=== PATIENT | female | born 1960 | race Caucasian/White ===

== ENCOUNTER → 2019-07-25 08:48 | Outpatient (BNVA) | payer BC, SELFPAY | PROVIDERS: Family Provider Nurse Practitioner Family; PCP Nurse Practitioner Family; Visit Provider Anesthesiology | DX: M54.5 Low back pain (principal); M79.7 Fibromyalgia; M50.30 Other cervical disc degeneration, unspecified cervical region; M47.812 Spondylosis without myelopathy or radiculopathy, cervical region; G43.709 Chronic migraine without aura, not intractable, without status migrainosus; R53.82 Chronic fatigue, unspecified; Z79.891 Long term (current) use of opiate analgesic | CPT/HCPCS: 99214 ==

== ENCOUNTER → 2019-08-07 09:45 | Outpatient (BNVA) | payer BC, SELFPAY | PROVIDERS: Family Provider Nurse Practitioner Family; PCP Nurse Practitioner Family; Visit Provider Nurse Practitioner Family | DX: I10 Essential (primary) hypertension (principal) | CPT/HCPCS: 80053; 80061; 85025 ==

== ENCOUNTER → 2019-09-26 08:28 | Outpatient (BNVA) | payer BC, SELFPAY | PROVIDERS: Family Provider Nurse Practitioner Family; Visit Provider Anesthesiology | DX: M47.812 Spondylosis without myelopathy or radiculopathy, cervical region (principal); M50.30 Other cervical disc degeneration, unspecified cervical region; M79.7 Fibromyalgia; Z79.891 Long term (current) use of opiate analgesic | CPT/HCPCS: 99214 ==

== ENCOUNTER → 2020-01-15 08:05 | Outpatient (BNVA) | payer BC, SELFPAY | PROVIDERS: Family Provider Nurse Practitioner Family; Visit Provider Anesthesiology | DX: M47.812 Spondylosis without myelopathy or radiculopathy, cervical region (principal); M50.30 Other cervical disc degeneration, unspecified cervical region; M79.7 Fibromyalgia; Z79.891 Long term (current) use of opiate analgesic | CPT/HCPCS: 99214 ==

== ENCOUNTER → 2020-03-14 07:55 | Outpatient (BNVA) | payer BC, SELFPAY | PROVIDERS: Family Provider Nurse Practitioner Family; Visit Provider Anesthesiology | DX: M50.30 Other cervical disc degeneration, unspecified cervical region (principal); M47.812 Spondylosis without myelopathy or radiculopathy, cervical region; Z79.891 Long term (current) use of opiate analgesic | CPT/HCPCS: 99213; 99214 ==

== ENCOUNTER → 2020-05-22 13:47 | Outpatient (BNVA) | payer BC, SELFPAY | PROVIDERS: Family Provider Nurse Practitioner Family; PCP Family Medicine; Visit Provider Anesthesiology | DX: M54.42 Lumbago with sciatica, left side (principal); M54.41 Lumbago with sciatica, right side; M54.9 Dorsalgia, unspecified; M47.812 Spondylosis without myelopathy or radiculopathy, cervical region; M50.30 Other cervical disc degeneration, unspecified cervical region; M79.7 Fibromyalgia; R53.82 Chronic fatigue, unspecified; Z79.1 Long term (current) use of non-steroidal anti-inflammatories (NSAID); Z79.891 Long term (current) use of opiate analgesic | CPT/HCPCS: 99214 ==

== ENCOUNTER → 2020-07-18 07:51 | Outpatient (BNVA) | payer BC, SELFPAY | PROVIDERS: Family Provider Nurse Practitioner Family; PCP Family Medicine; Visit Provider Anesthesiology | DX: G89.29 Other chronic pain (principal); M54.9 Dorsalgia, unspecified; M47.812 Spondylosis without myelopathy or radiculopathy, cervical region; M50.30 Other cervical disc degeneration, unspecified cervical region; M79.7 Fibromyalgia; Z79.891 Long term (current) use of opiate analgesic | CPT/HCPCS: 99214 ==

== ENCOUNTER → 2020-09-11 07:55 | Outpatient (BNVA) | payer BC, SELFPAY | PROVIDERS: Family Provider Nurse Practitioner Family; PCP Family Medicine; Visit Provider Anesthesiology | DX: G89.29 Other chronic pain (principal); M47.812 Spondylosis without myelopathy or radiculopathy, cervical region; M50.30 Other cervical disc degeneration, unspecified cervical region; M79.7 Fibromyalgia; M54.9 Dorsalgia, unspecified; Z79.891 Long term (current) use of opiate analgesic | CPT/HCPCS: 99214 ==

== ENCOUNTER → 2020-11-13 08:22 | Outpatient (BNVA) | payer BC, SELFPAY | PROVIDERS: Family Provider Nurse Practitioner Family; PCP Nurse Practitioner Family; Visit Provider Anesthesiology | DX: G89.29 Other chronic pain (principal); M54.9 Dorsalgia, unspecified; M47.812 Spondylosis without myelopathy or radiculopathy, cervical region; M50.30 Other cervical disc degeneration, unspecified cervical region; M79.7 Fibromyalgia; Z79.891 Long term (current) use of opiate analgesic | CPT/HCPCS: 99214 ==

== ENCOUNTER → 2021-01-09 08:20 | Outpatient (BNVA) | payer BC, SELFPAY | PROVIDERS: Family Provider Nurse Practitioner Family; PCP Nurse Practitioner Family; Visit Provider Anesthesiology | DX: G89.29 Other chronic pain (principal); M47.812 Spondylosis without myelopathy or radiculopathy, cervical region; M50.30 Other cervical disc degeneration, unspecified cervical region; M54.9 Dorsalgia, unspecified; M79.7 Fibromyalgia; Z79.891 Long term (current) use of opiate analgesic | CPT/HCPCS: 99214 ==

== ENCOUNTER 2021-02-12 07:25 | Emergency (ER) | payer BC, SELFPAY ==
[2021-02-12 07:42] VITALS: BP 134/78; PULSE 71; RESP 16; TEMP 36.8; O2SAT 100; BMI 24.0
--- NOTE | 2021-02-12 08:03 | CT_ITS ---
WS: [id number] CT ABDOMEN AND PELVIS WITH CONTRAST HISTORY: abd pain TECHNIQUE: Imaging performed of the abdomen and pelvis with IV contrast. Single phase imaging of the abdomen. Coronal and sagittal reformats are submitted. All CT scans at [facility] use at least one of these dose optimization techniques: automated exposure control; mA and/or kV adjustment per patient size (includes targeted exams where dose is matched to clinical indication); or iterativ e reconstruction. IV CONTRAST: Omnipaque 300; 95 mL IV. Oral contrast: No DLP: 889.79 mGy.cm COMPARISON: None available. Lower thorax: Lung bases are clear. Heart is normal size. No hiatal hernia. Liver/biliary system: Normal size with no intrahepatic dilatation. Gallbladder: Normal. No gallstones or wall thickening. No pericholecystic fluid. Pancreas: Pancreatic duct is mildly prominent 3.2 mm. No stone or obstruction is evident. No mass. Spleen: Normal size spleen. No mass or infarct. Adrenal glands: Normal. Right kidney: Cortical cyst measures 3 mm. There is additional fatty attenuation lesion maximum diame ter of 12 mm in the mid anterior cortex consistent with an angiomyolipoma. No obstruction. Left kidney: Cortical hypodensities. No solid mass or obstruction. Aorta: Normal. Lymphadenopathy: None. Free fluid: None. GI tract: Mild wall thickening of the antrum but no obstruction. The appendix is normal. There is mil d diffuse fecal retention and constipation. No GI tract obstruction. Abdominal wall: Unremarkable abdominal wall. No hernia. Pelvis: No free fluid or adenopathy within the pelvis. Bones: Mild thoracolumbar scoliosis. CT/CT abdomen pelvis w con* [id number] IMPRESSION: 1. No appendicitis. 2. Diffuse constipation. 3. Mild thickening of the stomach antrum. Consider gastritis. 4. Very mildly prominent pancreatic duct with no mass or stone identified. 5. RIGHT renal angiomyolipoma.
--- NOTE | 2021-02-12 08:03 | US_ITS ---
WS: [id number] RIGHT UPPER QUADRANT ULTRASOUND HISTORY: Abdominal pain. COMPARISON: 03/07/2009 Liver: 12.7 cm in length. Normal size liver. No bile duct dilatation or mass. Gallbladder: Normally distended gallbladder. No stones or wall thickening. CBD: 0.3 cm Pancreas: Pancreas is normal size. The pancreatic duct is dilated measuring up to 3 mm. No mass ident ified or stone. Right kidney: 10.0 cm in length. Normal size and echogenicity. No hydronephrosis or mass. Aorta and IVC: Unremarkable abdominal aorta and IVC. No ascites. US/US gall bladder [id number] IMPRESSION: 1. Negative gallbladder. 2. Minimally prominent pancreatic duct to 3 mm. Suggest short-term CT follow-u p of the pancreas with IV and oral contrast to evaluate for pancreatic duct les ion and etiology of the duct dilatation. Arterial and portal venous phases shou ld be obtained.
--- NOTE | 2021-02-12 08:08 | ED_ITS ---
HPI - Abdominal Pain General: Chief Complaint: Abdominal Pain Stated Complaint: ABD PAINS Time Seen by Provider: 02/12/21 07:27 History of Present Illness: HPI narrative: 60-year-old female comes in complaining of upper abdominal pain for last 6 to 7-week epigastric radiating to the right upper quadrant. She was seen by her PCP and has a gallbladder ultrasound scheduled does not yet have it done she tried various [id number] remedies with no relief. She denies any medication melena hematemesis Sullivan's dysuria urgency or frequency. MD elicited complaint: abdominal pain Onset (ago): week(s) Pain Consistency: intermittent and colicky Location: Epigastric Severity: moderate Quality: cramping Radiation: RUQ Exacerbating factors: eating (Vegetables) Relieving factors: nothing Associated Symptoms: Reports anorexia, bloating, GI cramping, nausea and poor appetite; Denies belching, change in bowel habits, change in stool character, chills, coffee ground emesis, constipation, diarrhea, dyspepsia, dysuria, excessive flatus, fever(s), heartburn, hematochezia, hematuria, hematemesis, fecal incontinence, loose stools, melena, syncope and vomiting Review of Systems Const: Denies: fever(s) or chills ENMT: Denies: throat pain, ear or mastoid pain, nasal discharge or nasal congestion Card: Denies: syncope Resp: Denies: dyspnea, productive cough or non-productive cough GI: Reports: nausea, bloating and GI cramping; Denies: vomiting, hematemesis, coffee ground emesis, heartburn, diarrhea, constipation, belching, excessive flatus, fecal incontinence, change in bowel habits, change in stool character, hematochezia or melena : Denies: dysuria or hematuria Skin/Breast: Denies: rash or pruritus PFSH ED PFSH: Medical History Cervical arthritis Chronic fatigue syndrome with fibromyalgia Chronic migraine w/o aura w/o status migrainosus, not intractable Chronic neck and back pain DDD (degenerative disc disease), cervical Encounter for long-term (current) use of NSAIDs Encounter for long-term use of opiate analgesic Fibromyalgia Myalgia Surgical History Previous section 1990 S/P hysterectomy 1999 S/P tonsillectomy and adenoidectomy 1965 Family History Father Cancer SKIN Sister Family history of headaches Social History Smoking and tobacco status: never smoked Second hand smoke exposure: No Alcohol intake: never History of recent travel: No Physical Exam Const: COMMON NORMALS: no acute distress GENERAL APPEARANCE: cooperative and comfortable ORIENTATION/CONSCIOUSNESS: Yes awake, Yes oriented to person, Yes oriented to place and Yes oriented to time HENMT: COMMON NORMALS: normocephalic, atraumatic and hearing grossly normal bilaterally HEAD & SCALP: normocephalic and atraumatic Neck/C-Spine: COMMON NORMALS: no JVD Resp: COMMON NORMALS: normal respiratory effort, No retractions, No use of accessory muscles and clear to auscultation bilaterally AUSCULTATION: clear to auscultation bilaterally Cardio: COMMON NORMALS: no JVD, regular rate, regular rhythm and No murmurs present (Cardio) RATE: regular rate RHYTHM: regular rhythm GI: COMMON NORMALS: No hepatosplenomegaly present AUSCULTATION: Yes normoactive bowel sounds PALPATION: Yes Tenderness to palpation present (GI) Details: RUQ, No Guarding due to palpation present (GI) and Yes No hepatosplenomegaly present Extremity: COMMON NORMALS: normal to inspection, capillary refill normal, no clubbing, cyanosis or edema, no calf tenderness and no pedal edema Neuro: SENSORIUM/ORIENTATION: Yes oriented to person, Yes oriented to place and Yes oriented to time Skin: COMMON NORMALS: no rashes or lesions noted GENERAL SKIN EXAM: no rashes or lesions noted Course Vital Signs: Vital signs: Vital Signs Temperature 98.2 F 02/12/21 07:42 Pulse Rate 66 02/12/21 11:55 Respiratory Rate 15 02/12/21 11:55 Blood Pressure 131/71 02/12/21 11:55 Pulse Oximetry 100 02/12/21 11:55 MDM - Abdominal Pain MDM Narrative: Medical decision making narrative: Labs and imaging reviewed. Organ to get her set up for a HIDA scan, MRCP, and referral to general surgery for possible EGD. If she has worsening or change symptoms return reviewed dietary issues specifically what she should avoid. Pain is not controlled return. Lab Data: Labs: Lab Results 02/12/21 02/12/21 02/12/21 Range/Units 08:00 08:00 08:00 WBC 4.2 (4.0-10.0) 10^3/ uL RBC 4.10 (4.1-5.3) 10^6/u L Hgb 12.6 (11.5-15.3) g/dL Hct 38.2 (37.0-47.0) % MCV 93.2 (81-99) fL MCH 30.7 (28.0-34.0) pg MCHC 33.0 (30.0-36.0) g/dL RDW 11.6 L (12.1-15.1) % Plt Count 266 (130-400) 10^3/c mm MPV 10.2 (7.4-10.4) fL Neut % (Auto) 55.9 % Lymph % (Auto) 35.9 % [place] % (Auto) 5.9 % Eos % (Auto) 1.4 % Baso % (Auto) 0.7 % Neut # (Auto) 2.35 (1.8-7.7) 10^3/u L Lymph # (Auto) 1.5 (0.8-4.8) 10^3/u L [place] # (Auto) 0.3 (0.2-0.9) 10^3/u L Eos # (Auto) 0.1 (0.0-0.8) 10^3/u L Baso # (Auto) 0.0 (0.0-0.1) 10^3/u L Nucleated RBC % (a uto) 0 % Nucleated RBCs # 0.0 /100WBC Sodium 138 (136-145) mmol/L Potassium 3.6 (3.5-5.1) mmol/L Chloride 101 (98-107) mmol/L Carbon Dioxide 27 (22-29) mmol/L Anion Gap 13.6 (5-19) BUN 8 (8-23) mg/dL Creatinine 0.7 (0.5-0.9) mg/dL GFR Calculation 85.1 L (90-130) mL/min Glucose 88 (65-115) mg/dL Calculated Osmolal ity 284 L (285-295) mOsm/k g Calcium 9.0 (8.5-10.5) mg/dL Total Bilirubin 0.2 (0.15-1.2) mg/dL AST 15 (0-32) U/L ALT 9 (0-33) U/L Alkaline Phosphata se 34 L (35-105) IU/L Total Protein 6.5 L (6.6-8.7) g/dL Albumin 4.3 (3.5-5.2) g/dL Globulin 2.2 (1.3-4.6) g/dL Lipase 45 (13-60) U/L Urine Color Yellow (Yellow) Urine Appearance Clear (CLEAR) Urine pH 8 H (5-7) Ur Specific Gravit y 1.005 (1.005-1.030) Urine Protein Neg (Negative) Urine Glucose (UA) Norm (Normal) Urine Ketones Negative (Negative) Urine Blood Neg (Negative) Urine Nitrate Negative (Negative) Urine Bilirubin Neg (Negative) Prot Sulfosalicyli c Acd Negative (Negative) Urine Urobilinogen Norm (Negative) mg/dL Ur Leukocyte Herlinda ase Negative (Negative) Discharge Plan Discharge Patient Disposition: Home Clinical Impression: Abdominal pain, Dilated pancreatic duct Condition: Stable Prescriptions: New promethazine 25 mg tablet 25 mg PO Q6H PRN (Reason: nausea and vomiting) Qty: 20 RF: 0 Discontinued ibuprofen 600 mg tablet 600 mg PO TID PRN (Reason: pain) 30 Days Qty: 90 RF: 1 No Action sucralfate 1 gram tablet 1 g PO QID RF: 0 pantoprazole 40 mg tablet,delayed release (DR/EC) 40 mg PO BID RF: 0 hydrocodone-acetaminophen 10-325 mg tablet 1 tab PO .5 times a day PRN (Reason: pain) 30 Days Qty: 150 RF: 0 tramadol 50 mg tablet 100 mg PO QID PRN (Reason: pain) 30 Days Qty: 240 RF: 1 escitalopram oxalate [Lexapro] 20 mg tablet 20 mg PO QPM RF: 0 amoxicillin 500 mg capsule 500 mg PO Q8H RF: 0 meloxicam 15 mg tablet 15 mg PO DAILY RF: 0 meclizine 12.5 mg Tablet 12.5 mg PO DAILY PRN (Reason: Nausea) RF: 0 acetaminophen-codeine 300-30 mg tablet 1 tab PO Q4H PRN (Reason: Pain) RF: 0 Colace 100 mg Capsule 100 mg PO DAILY RF: 0 estradiol 2 mg tablet 2 mg PO BEDTIME RF: 0 Senna Laxative 25 mg Tablet 25 mg PO DAILY RF: 0 tizanidine 4 mg tablet 4 mg PO BEDTIME RF: 0 lisinopril-hydrochlorothiazide 20-25 mg tablet 1 tab PO QAM RF: 0 Discharge Orders: Discharge ED (Routine); Ordered 02/12/21 Ordered By: Patrick Harris Referrals: Keila Dee APN [Primary Care Provider] - Discharge Diet: As Directed Discharge Activity: Increase activity as tolerated Patient Instructions: Abdominal Pain (ED), Opioid Safety Activity Restrictions/Additional Instructions: Case management will call to's arrange for MRCP, HIDA scan and surgical consult for possible EGD to further evaluate your pain. [place] diet as directed. Continue your pantoprazole twice daily Carafate as needed promethazine as needed for nausea or vomiting use previously prescribed pain medications. Coding Level of Care Code ED Bread Dough Mixer for Elijahg Fwd Exam Comprehensive
[2021-02-12 08:13] LABS: Add Urine Microscopic? NO; Charge for UA Resulting for Rev
[2021-02-12 08:16] LABS: Basophils % 0.7 %; Eosinophils # 0.1 10^3/uL (0.0-0.8); Eosinophils % 1.4 %; Hematocrit 38.2 % (37.0-47.0); Hemoglobin 12.6 g/dL (11.5-15.3); Lymphocytes # 1.5 10^3/uL (0.8-4.8); Lymphocytes % 35.9 %; Mean Corpuscular Hemoglobin 30.7 pg (28.0-34.0); Mean Corpuscular Volume 93.2 fL (81-99); Mean Platelet Volume 10.2 fL (7.4-10.4); Monocytes # 0.3 10^3/uL (0.2-0.9); Monocytes % 5.9 %; Neutrophils # 2.35 10^3/uL (1.8-7.7); Neutrophils % 55.9 %; Nucleated Red Blood Cells % 0 %; Platelet Count 266 10^3/cmm (130-400); Red Cell Distribution Width 11.6 % (12.1-15.1); White Blood Count 4.2 10^3/uL (4.0-10.0)
[2021-02-12] MEDS: sodium chloride 0.9% 1,000 ML 999 ML IV (08:24)
[2021-02-12 08:25] LABS: Bilirubin Urine Neg (Negative); Blood Urine Neg (Negative); Glucose Urine UA Norm (Normal); Ketones Urine Negative (Negative); Leukocyte Esterase Urine Negative (Negative); Nitrate Urine Negative (Negative); Protein Urine Neg (Negative); Specific Gravity, Urine 1.005 (1.005-1.030); Sulfosalicylic Acid Urine Negative (Negative); Urine Appearance Clear (CLEAR); Urine Color Yellow (Yellow); Urobilinogen Urine Norm (Negative); pH Urine 8 (5-7)
[2021-02-12] MEDS: ondansetron 2 mg/ML SDV 2 mL 4 MG IVP (08:25)
[2021-02-12] MEDS: morphine 4 mg/mL SDV 1 mL IVP ×2 (08:27→11:04)
[2021-02-12 08:55] LABS: Alanine Aminotransferase 9 U/L (0-33); Albumin Level 4.3 g/dL (3.5-5.2); Alkaline Phosphatase 34 IU/L (35-105); Aspartate Amino Transferase 15 U/L (0-32); Blood Urea Nitrogen 8 mg/dL (8-23); Carbon Dioxide 27 mmol/L (22-29); Chloride 101 mmol/L (98-107); Creatinine Clr Calc Pharmacy 77.5705; Globulin 2.2 g/dL (1.3-4.6); Glomerular Filtration Rate 85.1 mL/min (90-130); Glucose 88 mg/dL (65-115); Lipase 45 U/L (13-60); Osmolality Calculated 284 mOsm/kg (285-295); Sodium 138 mmol/L (136-145); Total Bilirubin 0.2 mg/dL (0.15-1.2); Total Protein 6.5 g/dL (6.6-8.7)
[2021-02-12 08:59] VITALS: BP 115/67; PULSE 67; RESP 15; O2SAT 94
[2021-02-12 09:02] LABS: Anion Gap 13.6 (5-19); Potassium 3.6 mmol/L (3.5-5.1)
[2021-02-12] MEDS: iohexol 300 mg/mL 100 mL Btl IV (09:14)
[2021-02-12] MEDS: lidocaine 2% viscous 15 ML, aluminum-mag hydrox-simethicon 30 ML, sucralfate oral liq 1 GM PO (11:04)
[2021-02-12 11:55] VITALS: BP 131/71; PULSE 66; RESP 15; O2SAT 100
--- NOTE | 2021-02-13 10:21 | DCPLANNER ---
regulatory product manager had message to schedule an outpatient MRCP and a HIDA scan for patient. regulatory product manager faxed signed order to centralized scheduling. Centralized scheduling will call patient with appointment information. regulatory product manager also had message to schedule a follow up appointment for patient with general surgery for an EGD. regulatory product manager emailed patients information to Devon at [facility] General Surgery. Patients information will be printed and reviewed. Clinic will call patient with appointment information.
--- NOTE | 2021-02-17 08:04 | DCPLANNER ---
Patient has a follow up appointment scheduled for Tuesday, february 23, 2021 at 10:[address] Perez. Clinic will call patient with appointment information.
--- NOTE | 2021-02-24 13:56 | DCPLANNER ---
Patient has a follow up appointment scheduled for Wednesday, March 03, 2021 at 9:30 for an outpatient MRCP. Centralized scheduling will call patient with appointment information. Patient has a follow up appointment scheduled for Wednesday, March 17, 2021 at 8:00 for an outpatient HIDA Scan. Centralized scheduling will call patient with appointment information. Patient had a follow up appointment scheduled for 02.24.21 with [facility] General Surgery with Dr. Perez - patient did attend appointment.
--- NOTE | 2021-03-27 13:36 | DCPLANNER ---
Patient had a MRCP and a HIDA scan scheduled - patient attended both appointments.
== END 2021-02-12 11:56 | disposition home or self-care (01) ==
PROVIDERS: Emergency Provider Family Medicine; PCP Nurse Practitioner Family
DX: R10.9 Unspecified abdominal pain (principal); K86.89 Other specified diseases of pancreas
CPT/HCPCS: 74177; 76705; 80053; 81003; 83690; 85025; 96361; 96374; 96375; 96376; 99284; J2270; J2405; J7030; Q9967

== ENCOUNTER → 2021-02-26 08:19 | Outpatient (BNVA) | payer BC, SELFPAY | PROVIDERS: PCP Nurse Practitioner Family; Visit Provider Surgery | DX: Z11.52 Encounter for screening for COVID-19 (principal) | CPT/HCPCS: 87635 ==

== ENCOUNTER 2021-03-03 08:58 | Outpatient (CLI) | payer BC, SELFPAY ==
--- NOTE | 2021-03-03 09:18 | MR_ITS ---
WS: [id number] MRI/MRCP OF THE ABDOMEN WITHOUT GADOLINIUM ENHANCEMENT TECHNIQUE: Thin and thick slab MRCP, Axial T2, Coronal MRCP, Axial Dual Echo, and Axial 2-D Fiesta imaging was obtained. Coronal 2-D Fiesta imaging. CLINICAL INFORMATION: DIALATED PANCREATIC DUCT COMPARISON: CT February 12, 2021 FINDINGS: Liver is normal in appearance. Normal portal vein and splenic vein. Normal spleen. Normal GE junction . Adrenal glands are normal. Normal renal parenchymal signal. A few tiny renal cysts. Right renal ang iomyolipoma measuring 12 mm. Minimal prominence of the pancreatic duct is unchanged. Normal tapering of the common bile duct dista lly. No evidence of choledocholithiasis or pancreatic lesion. No visualized pancreatic duct lesion. N ormal caliber abdominal aorta. Normal gallbladder. No intra or extra hepatic biliary ductal dilatatio n. MR/MR MRCP [id number] Impression: 1. Minimal prominence of the pancreatic duct unchanged. No evidence of pancrea tic or intraductal lesion. 2. Normal common bile duct. 3. No intrahepatic biliary ductal dilatation. 4. Bilateral renal cysts. 5. Stable right renal angiomyolipoma measuring 12 mm.
== END 2021-03-03 08:59 | disposition home or self-care (01) ==
LOC: RADSHAW 09:00
PROVIDERS: PCP Nurse Practitioner Family; Visit Provider Family Medicine
DX: K86.89 Other specified diseases of pancreas (principal); Q61.02 Congenital multiple renal cysts; D17.71 Benign lipomatous neoplasm of kidney
CPT/HCPCS: 74181

== ENCOUNTER → 2021-03-04 14:23 | Outpatient (BNVA) | payer BC, SELFPAY | PROVIDERS: PCP Nurse Practitioner Family; Visit Provider Anesthesiology | DX: G89.29 Other chronic pain (principal); M54.5 Low back pain; M47.812 Spondylosis without myelopathy or radiculopathy, cervical region; M50.30 Other cervical disc degeneration, unspecified cervical region; M79.7 Fibromyalgia; Z79.891 Long term (current) use of opiate analgesic | CPT/HCPCS: 99214 ==

== ENCOUNTER 2021-03-05 07:17 | Day surgery (SDC) | payer BC, SELFPAY ==
[2021-02-27 15:07] VITALS: BMI 24.0
[2021-03-05 07:39] VITALS: BP 146/81; PULSE 59; RESP 18; TEMP 37.1; O2SAT 99
[2021-03-05] MEDS: sodium chloride 0.9% 1,000 ML 30 ML IV (07:52)
--- NOTE | 2021-03-05 08:35 | ANES.PREANE2 ---
Pre-Anesthetic Assessment Pre-Anesthetic Assessment: Height/Weight: Height 1.63 m Weight 63.503 kg Temp Pulse Resp BP Pulse Ox 98.8 F 59 L 18 146/81 99 03/05/21 07:39 03/05/21 07:39 03/05/21 07:39 03/05/21 07:39 03/05/21 07:39 Preop Diagnosis: upper gi symptoms Proposed Procedure: Operation Date: 03/05/21 08:30 Proposed Procedures p EGD 65461 R10.13(Not Applicable) - Gordon Lambert MD Was Beta Lauro taken within 24 hours: N/A Was Clonidine taken within 24 hours: N/A Last intake: Intake Last Liquid Date 03/04/21 Last Liquid Time 23:30 Last Solid Date 03/04/21 Last Solid Time 20:30 Social: Social History: No alcohol and No tobacco Exam: Pre-Anes Outpt Exam: alert, oriented x 3, clear to auscultation bilaterally and regular rate & rhythm Airway: Submandibular: WNL Cervical ROM: WNL MP: 1 Dentition: Full History/ROS: No significant history except as noted Pulmonary: Pulmonary: None reported CV/HEM: CV/HEM: None reported : : None reported Hepatic: Hepatic: None reported GI: GI: GERD Metabolic: Metabolic: None reported Musc/skel: Musc/skel: Fibromyalgia Neuropsych: Neuropsych: None reported Anesthetic Plan: ASA status: 2 Anesthesia: Anesthesia Evaluation and MAC Meds/Allergies Current Medications: Current Medications Generic Name Dose Route Start Last Admin Trade Name Freq PRN Reason Stop Dose Admin Sodium Chloride 1,000 mls @ 30 ml s/hr 03/05/21 07:45 03/05/21 07:52 Sodium Chloride 0.9% IV 03/06/21 07:44 30 mls/hr .Q24H JOSE Administration PFSH Anesthesia PFSH: Medical History Cervical arthritis Chronic fatigue syndrome with fibromyalgia Chronic migraine w/o aura w/o status migrainosus, not intractable Chronic neck and back pain DDD (degenerative disc disease), cervical Fibromyalgia Surgical History (Updated 03/05/21 @ 08:53 by Gordon Lambert MD) H/O esophagogastroduodenoscopy (03/05/21) Gastric ulcer, Schatzki ring, hiatal hernia Previous section 1990 S/P hysterectomy 1999 S/P tonsillectomy and adenoidectomy 1965 Status post colonoscopy Family History Father Cancer SKIN Sister Family history of headaches Social History (Updated 03/04/21 @ 15:13 by Jayda Ryan LPN) Smoking and tobacco status: never smoked Second hand smoke exposure: No Alcohol intake: never History of recent travel: No Data Anesthesia Cardiac Studies: No Data to Display
--- NOTE | 2021-03-05 08:42 | W.PM.OPSUD ---
Surgery/Procedure H&P Update DATE OF PROCEDURE: March 05, 2021 DATE H&P PERFORMED: 02/24/21 H&P UPDATE INFORMATION: I have reviewed H&P completed within last 30 days, I have examined patient prior to procedure and No changes to prior documentation PREOP DIAGNOSIS: upper gi symptoms PLANNED PROCEDURE: Operation Date: 03/05/21 08:30 Proposed Procedures p EGD 04754 R10.13(Not Applicable) - Gordon Lambert MD
[2021-03-05 08:56] VITALS: BP 123/78; PULSE 77; RESP 18; TEMP 36.9; O2SAT 98
[2021-03-05 09:06] VITALS: BP 128/82; PULSE 70; RESP 18; O2SAT 99
--- NOTE | 2021-03-05 16:20 | ANE.PACU2 ---
Inpatient post-anesthesia follow up: Airway intact: Yes Vital signs: Temperature 98.4 F Pulse Rate 70 Respiratory Rate 18 Blood Pressure 128/82 Pulse Oximetry 99 Oxygen Delivery Me thod Room Air Oxygen Flow Rate 3 Fraction of Inspir ed Oxygen Hydration adequate: Yes Nausea and vomiting: No Pain level: 1 Mental status: Baseline
== END 2021-03-05 09:30 | disposition home or self-care (01) ==
PROVIDERS: PCP Nurse Practitioner Family; Visit Provider Surgery
PROC: 0DJ08ZZ Inspection of Upper Intestinal Tract, Via Natural or Artificial Opening Endoscopic (ICD-10-PCS; CPT 43235; principal; 2021-03-05 08:30)
DX: R10.13 Epigastric pain (principal); K25.9 Gastric ulcer, unspecified as acute or chronic, without hemorrhage or perforation; K44.9 Diaphragmatic hernia without obstruction or gangrene; K21.9 Gastro-esophageal reflux disease without esophagitis; M79.7 Fibromyalgia
CPT/HCPCS: 43239; 88305; 96360; J2704; J7030

== ENCOUNTER 2021-03-17 07:45 | Outpatient (CLI) | payer BC, SELFPAY ==
--- NOTE | 2021-03-17 07:51 | NM_ITS ---
WS: [id number] NUCLEAR MEDICINE HIDA SCAN CLINICAL INFORMATION: DILATED PANCREATIC DUCT TECHNIQUE: Following intravenous administration of mCi of technetium 99m mebrofenin, images of the ab domen were obtained over the course of 60 minutes. Next, gallbladder ejection fraction was determined by obtaining preprandial and one-hour postprandial images of the gallbladder following oral ingestio n of Ensure. COMPARISON: March 03, 2021 FINDINGS: Normal hepatic uptake at 5 minutes. Gallbladder is visualized by 15 minutes. Normal hepatic excretion . Small bowel is visualized. Normal common bile duct. No evidence of acute cholecystitis or choledoch olithiasis. Gallbladder ejection fraction 99% within normal limits. No evidence of chronic cholecystitis. NM/NM hepatobiliary w phar* [id number] IMPRESSION: 1. No evidence of acute or chronic cholecystitis. 2. Gallbladder ejection fraction 99% within normal limits.
== END 2021-03-17 07:46 | disposition home or self-care (01) ==
LOC: NM 07:47
PROVIDERS: PCP Nurse Practitioner Family; Visit Provider Family Medicine
DX: K86.89 Other specified diseases of pancreas (principal)
CPT/HCPCS: 78227; A9537

== ENCOUNTER → 2021-04-21 11:51 | Outpatient (BNVA) | payer BC, SELFPAY | PROVIDERS: PCP Nurse Practitioner Family; Visit Provider Anesthesiology | DX: G89.29 Other chronic pain (principal); M54.50 Low back pain, unspecified; M47.812 Spondylosis without myelopathy or radiculopathy, cervical region; M50.30 Other cervical disc degeneration, unspecified cervical region; M79.7 Fibromyalgia; Z79.891 Long term (current) use of opiate analgesic | CPT/HCPCS: 99214 ==

== ENCOUNTER → 2021-06-15 16:11 | Outpatient (BNVA) | payer BC, SELFPAY | PROVIDERS: PCP Nurse Practitioner Family; Visit Provider Surgery | DX: Z20.822 Contact with and (suspected) exposure to COVID-19 (principal); Z11.52 Encounter for screening for COVID-19 | CPT/HCPCS: 87635 ==

== ENCOUNTER 2021-06-18 08:54 | Day surgery (SDC) | payer BC, SELFPAY ==
[2021-06-17 12:08] VITALS: BMI 24.0
[2021-06-18 09:25] VITALS: BP 134/84; PULSE 62; RESP 18; TEMP 36.5; O2SAT 95
--- NOTE | 2021-06-18 09:30 | ANES.PREANE2 ---
Pre-Anesthetic Assessment Pre-Anesthetic Assessment: Height/Weight: Height 1.63 m Weight 63.503 kg Preop Diagnosis: upper gi symptoms Proposed Procedure: Operation Date: 06/18/21 10:30 Proposed Procedures p EGD 63632 R10.13(Not Applicable) - Gordon Lambert MD Was Beta Lauro taken within 24 hours: N/A Was Clonidine taken within 24 hours: N/A Social: Social History: No alcohol and No tobacco Exam: Pre-Anes Outpt Exam: alert, oriented x 3, clear to auscultation bilaterally and regular rate & rhythm Airway: Submandibular: WNL Cervical ROM: WNL MP: 2 Pulmonary: Pulmonary: None reported CV/HEM: CV/HEM: HTN : : None reported Hepatic: Hepatic: None reported GI: GI: GERD and PUD Metabolic: Metabolic: None reported Musc/skel: Musc/skel: Fibromyalgia, Lower Back Pain, OA/DJD and Weakness Neuropsych: Neuropsych: Depression Anesthetic Plan: ASA status: 2 Anesthesia: MAC PFSH Anesthesia PFSH: Medical History Cervical arthritis Chronic fatigue syndrome with fibromyalgia Chronic migraine w/o aura w/o status migrainosus, not intractable Chronic neck and back pain DDD (degenerative disc disease), cervical Fibromyalgia Gastric ulcer Surgical History H/O esophagogastroduodenoscopy (03/05/21) Gastric ulcer, Schatzki ring, hiatal hernia Previous section 1990 S/P hysterectomy 1999 S/P tonsillectomy and adenoidectomy 1965 Status post colonoscopy Family History Father Cancer SKIN Sister Family history of headaches Social History Second hand smoke exposure: No Alcohol intake: never History of recent travel: No Data Anesthesia Cardiac Studies: No Data to Display
[2021-06-18] MEDS: sodium chloride 0.9% 1,000 ML 30 ML IV (09:52)
--- NOTE | 2021-06-18 10:28 | P.HP_ITS ---
Same Day Surgery H&P Indication for Procedure/HPI DATE OF PROCEDURE: June 18, 2021 CHIEF COMPLAINT/INDICATIONFOR SURGICAL PROCEDURE: egd for PUD PREOP DIAGNOSIS: upper gi symptoms PLANNED PROCEDRUE: Operation Date: 06/18/21 10:30 Proposed Procedures p EGD 69991 R10.13(Not Applicable) - Gordon Lambert MD Medications/Allergies* Home Medications Medication Instructions Recorded Confirmed Type escitalopram oxalate 20 mg tablet 20 mg PO QPM 11/13/20 06/18/21 History docusate sodium [Colace] 100 mg PO DAILY 02/12/21 06/18/21 History estradiol 2 mg PO BEDTIME 02/12/21 06/18/21 History lisinopril-hydrochlorothiazide 1 tab PO QAM 02/12/21 06/18/21 History meloxicam 15 mg PO DAILY 02/12/21 06/18/21 History Allergies/Adverse Reactions Allergy/AdvReac Type Severity Reaction Status Date / Time codeine Allergy Unknown Verified 06/18/21 09:32 duloxetine [From Cymbalta] Allergy ALGY-Rash Verified 06/18/21 09:32 gabapentin Allergy ALGY-Rash Verified 06/18/21 09:32 Penicillins Allergy Unknown Verified 06/18/21 09:32 Current Medications: Generic Name Dose Route Start Last Admin Trade Name Freq PRN Reason Stop Dose Admin Sodium Chloride 1,000 mls @ 30 mls/hr 06/18/21 09:15 06/18/21 09:52 Sodium Chloride 0.9% IV 06/19/21 09:14 30 mls/hr .Q24H JOSE Administration Pertinent History/Comorbid Conditions* Medical History (Updated 03/24/21 @ 16:59 by Gordon Lambert MD) Cervical arthritis Chronic fatigue syndrome with fibromyalgia Chronic migraine w/o aura w/o status migrainosus, not intractable Chronic neck and back pain DDD (degenerative disc disease), cervical Fibromyalgia Gastric ulcer Surgical History (Updated 03/05/21 @ 08:53 by Gordon Lambert MD) H/O esophagogastroduodenoscopy (03/05/21) Gastric ulcer, Schatzki ring, hiatal hernia Previous section 1990 S/P hysterectomy 1999 S/P tonsillectomy and adenoidectomy 1965 Status post colonoscopy Family History (Updated 07/23/19 @ 14:31 by Shantal Shultz, CT) Family history of headaches Sister Cancer Father SKIN Social History Second hand smoke exposure: No Alcohol intake: never History of recent travel: No Pertinent Exam Findings alert, oriented x 3 and regular rate & rhythm Recommendations Surgery/Procedure today Coding Level of Care Code Acute Supervisor Slate Splitting for Krys Maciel
--- NOTE | 2021-06-18 10:28 | W.PM.OPSUD ---
Surgery/Procedure H&P Update DATE OF PROCEDURE: June 18, 2021 DATE H&P PERFORMED: 04/28/21 H&P UPDATE INFORMATION: I have reviewed H&P completed within last 30 days, I have examined patient prior to procedure and No changes to prior documentation PREOP DIAGNOSIS: upper gi symptoms PLANNED PROCEDURE: Operation Date: 06/18/21 10:30 Proposed Procedures p EGD 72023 R10.13(Not Applicable) - Gordon Lambert MD
[2021-06-18 12:40] VITALS: BP 139/80; PULSE 76; RESP 16; TEMP 36.6; O2SAT 96
--- NOTE | 2021-06-18 12:45 | ANE.PACU2 ---
Inpatient post-anesthesia follow up: Airway intact: Yes Vital signs: Temperature 97.7 F Pulse Rate 62 Respiratory Rate 18 Blood Pressure 134/84 Pulse Oximetry 95 Oxygen Delivery Me thod Oxygen Flow Rate Fraction of Inspir ed Oxygen Hydration adequate: Yes Nausea and vomiting: No Pain level: 1 Mental status: Baseline
[2021-06-18 12:58] VITALS: BP 137/81; PULSE 67; RESP 18; TEMP 36.7; O2SAT 99
== END 2021-06-18 13:04 | disposition home or self-care (01) ==
PROVIDERS: PCP Nurse Practitioner Family; Visit Provider Surgery
PROC: 0DJ08ZZ Inspection of Upper Intestinal Tract, Via Natural or Artificial Opening Endoscopic (ICD-10-PCS; CPT 43235; principal; 2021-06-18 10:30)
DX: K25.9 Gastric ulcer, unspecified as acute or chronic, without hemorrhage or perforation (principal); K44.9 Diaphragmatic hernia without obstruction or gangrene; I10 Essential (primary) hypertension; K21.9 Gastro-esophageal reflux disease without esophagitis; F32.A Depression, unspecified; Z87.11 Personal history of peptic ulcer disease
CPT/HCPCS: 43239; 88305; 96360; 96361; J2704; J7030

== ENCOUNTER 2021-07-07 10:06 | Outpatient (CLI) | payer BC, SELFPAY ==
[2021-07-07 10:14] VITALS: BP 123/69; PULSE 60; RESP 17; TEMP 36.1; O2SAT 99; BMI 24.0
[2021-07-07 11:18] VITALS: BP 121/73; PULSE 58; RESP 17; TEMP 36.1; O2SAT 99
[2021-07-07 12:02] VITALS: BP 122/76; PULSE 58; RESP 17; TEMP 36.1; O2SAT 98
[2021-07-07 12:13] VITALS: BP 121/73; PULSE 58; RESP 17; TEMP 36.1; O2SAT 98
== END 2021-07-07 10:07 | disposition home or self-care (01) ==
LOC: OPS 10:07
PROVIDERS: PCP Nurse Practitioner Family; Visit Provider Nurse Practitioner Family
DX: U07.1 COVID-19 (principal)
CPT/HCPCS: 96365

== ENCOUNTER → 2021-08-30 11:35 | Outpatient (BNVA) | payer BC, SELFPAY | PROVIDERS: PCP Nurse Practitioner Family; Visit Provider Registered Nurse Neonatal Intensive Care | DX: J06.9 Acute upper respiratory infection, unspecified (principal); B96.89 Other specified bacterial agents as the cause of diseases classified elsewhere | CPT/HCPCS: 87400 ==

== ENCOUNTER 2022-12-04 21:35 | Emergency (ER) | payer BC, SELFPAY ==
[2022-12-04 21:49] VITALS: BP 114/77; PULSE 104; RESP 18; TEMP 36.7; O2SAT 98; BMI 24.9
--- NOTE | 2022-12-04 22:18 | CTR_ITS ---
PROCEDURE INFORMATION: Exam: CT Head Without Contrast Exam date and time: 12/04/2022 10:45 PM Age: 61 years old Clinical indication: Dizziness TECHNIQUE: Imaging protocol: Computed tomography of the head without contrast. Radiation optimization: All CT scans at this facility use at least one of these dose optimization techniques: automated exposure control; mA and/or kV adjustment per patient size (includes targeted exams where dose is matched to clinical indication); or iterative reconstruction. REPORTING DATA: Count of CT and Cardiac NM exams in prior 12 months: This patient has received 0 known CTs and 0 known cardiac nuclear medicine studies in the 12 months prior to the current study. COMPARISON: MR head wo con* [id number] 04/28/2016 3:49 PM RADIATION DOSE METRICS: Total DLP (mGy-cm): 1218.68 FINDINGS: Brain: Normal. No hemorrhage. Unremarkable white matter. No mass effect. Cerebral ventricles: No ventriculomegaly. Paranasal sinuses: Visualized sinuses are unremarkable. No fluid levels. Mastoid air cells: Visualized mastoid air cells are well aerated. Bones/joints: Unremarkable. No acute fracture. Soft tissues: Unremarkable. CT/CT head wo con* [id number] IMPRESSION: No acute intracranial abnormality.
--- NOTE | 2022-12-04 22:18 | XRR_ITS ---
PROCEDURE INFORMATION: Exam: XR Chest Exam date and time: 12/04/2022 10:42 PM Age: 61 years old Clinical indication: Other: Dizziness TECHNIQUE: Imaging protocol: Radiologic exam of the chest. Views: 1 view. COMPARISON: MR MRCP [id number] 03/03/2021 9:55 AM FINDINGS: Lungs: Unremarkable. No consolidation. Pleural spaces: Unremarkable. No pleural effusion. No pneumothorax. Heart/Mediastinum: Unremarkable. No cardiomegaly. Bones/joints: Unremarkable. XR/XR chest 1V portable [id number] IMPRESSION: No acute findings.
[2022-12-04 22:58] LABS: Basophils % 0.3 %; Eosinophils % 0.4 %; Hematocrit 41.4 % (37.0-47.0); Hemoglobin 13.5 g/dL (11.5-15.3); Lymphocytes # 1.3 10^3/uL (0.8-4.8); Lymphocytes % 17.6 %; Mean Corpuscular HGB Conc 32.6 g/dL (30.0-36.0); Mean Corpuscular Hemoglobin 30.8 pg (28.0-34.0); Mean Corpuscular Volume 94.5 fl (81-99); Mean Platelet Volume 9.9 fL (7.4-10.4); Monocytes # 0.3 10^3/uL (0.2-0.9); Monocytes % 4.5 %; Neutrophils # 5.86 10^3/uL (1.8-7.7); Neutrophils % 76.8 %; Nucleated Red Blood Cells % 0 %; Platelet Count 270 10^3/cmm (130-400); Red Blood Count 4.38 10^6/uL (4.1-5.3); Red Cell Distribution Width 11.9 % (12.1-15.1); White Blood Count 7.6 10^3/uL (4.0-10.0)
[2022-12-04 23:15] LABS: Troponin(5th) Baseline 6 ng/L (0-10)
[2022-12-04 23:20] LABS: Alanine Aminotransferase 10 U/L (0-33); Albumin Level 4.4 g/dL (3.5-5.2); Alkaline Phosphatase 38 U/L (35-105); Anion Gap 13.5 (5-19); Aspartate Amino Transferase 13 U/L (0-32); Blood Urea Nitrogen 14 mg/dL (8-23); Calcium 9.3 mg/dL (8.5-10.5); Carbon Dioxide 26 mmol/L (22-29); Chloride 106 mmol/L (98-107); Creatinine Clr Calc Pharmacy 68.0593; Globulin 2.5 g/dL (1.3-4.6); Glomerular Filtration Rate 72.7 mL/min (90-130); Glucose 113 mg/dL (65-115); Osmolality Calculated 295 mOsm/kg (285-295); Potassium 3.5 mmol/L (3.5-5.1); Sodium 142 mmol/L (136-145); Total Bilirubin 0.2 mg/dL (0.15-1.2); Total Protein 6.9 g/dL (6.6-8.7)
[2022-12-04] MEDS: sodium chloride 0.9% 1,000 ML 999 ML IV (23:26)
[2022-12-04] MEDS: ondansetron 2 mg/ML SDV 2 mL 4 MG IVP (23:27)
--- NOTE | 2022-12-04 23:27 | ED_ITS ---
HPI - Dizziness General: Chief Complaint: Dizziness Stated Complaint: vertigo, leg spasms, nausea Time Seen by Provider: 12/04/22 22:31 Source: patient Mode of arrival: ambulatory Limitations: no limitations History of Present Illness: HPI Narrative: 61-year-old female who has a history of vertigo in the past. She states she is taken meclizine in the past states started having some vertigo this morning she states she took some Benadryl she did not have any meclizine. States she continued of dizziness especially with movement. States she is lays down she has no dizziness but if she moves suddenly she gets very dizzy and has vomiting. She denies any headache denies any other neurodeficits at this time no weakness no slurred speech Associated symptoms: Denies chest pain, chills, headache(s), nausea or vomiting Review of Systems Const: Denies: fever(s), chills or body aches Eyes: Denies: blurry vision or eye discomfort ENMT: Denies: throat pain Card: Denies: chest pain Resp: Denies: dyspnea GI: Denies: abdominal pain, nausea, vomiting or diarrhea Musc: Denies: neck pain or back pain Skin/Breast: Denies: rash Neuro: Reports: vertigo; Denies: headache(s) PFSH ED PFSH: Medical History Cervical arthritis Chronic fatigue syndrome with fibromyalgia Chronic migraine w/o aura w/o status migrainosus, not intractable Chronic neck and back pain DDD (degenerative disc disease), cervical Fibromyalgia Gastric ulcer Surgical History H/O esophagogastroduodenoscopy (03/05/21) Gastric ulcer, Schatzki ring, hiatal hernia H/O esophagogastroduodenoscopy (06/18/21) Healed gastric ulcer, Schatzki ring, hiatal hernia Previous section 1990 S/P hysterectomy 1999 S/P tonsillectomy and adenoidectomy 1965 Status post colonoscopy Family History Father Cancer SKIN Sister Family history of headaches Social History Smoking and tobacco status: never smoked Second hand smoke exposure: No Alcohol intake: never Substance/Drug Use: never Physical Exam 2 Const: COMMON NORMALS: no acute distress, patient oriented x3 and healthy appearing HENMT: COMMON NORMALS: normocephalic and atraumatic HEAD & SCALP: normocephalic and atraumatic Eye: COMMON NORMALS: Equal, round and reactive pupils present, EOMs intact bilaterally and conjunctivae normal CONJUNCTIVA: Yes conjunctivae normal PUPIL: Yes Equal, round and reactive pupils present OTHER: Slight nystagmus when she looks to the right Neck/C-Spine: COMMON NORMALS: full ROM and supple Chest: COMMONS NORMALS: normal inspection of the chest and normal palpation of entire chest wall Resp: COMMON NORMALS: normal respiratory effort, No retractions, No use of accessory muscles and clear to auscultation bilaterally AUSCULTATION: clear to auscultation bilaterally Cardio: COMMON NORMALS: regular rate, regular rhythm and No murmurs present (Cardio) RATE: regular rate RHYTHM: regular rhythm GI: COMMON NORMALS: Normal to inspection, nondistended, normoactive bowel sounds present, Soft to palpation, non-tender and no masses PALPATION: Yes Soft to palpation Extremity: COMMON NORMALS: normal to inspection and full ROM Neuro: COMMON NORMALS: patient oriented x3, moves all extremities and no focal motor deficits CRANIAL NERVES: Yes CN normal except as noted SPEECH: speech normal GAIT: Yes Normal gait present MOTOR EXAM: 5/5 motor strength present throughout Psych: COMMON NORMALS: mental status grossly normal, Normal thought process present and cooperative THOUGHT PROCESS: Normal thought process present Skin: COMMON NORMALS: no rashes or lesions noted and no wounds GENERAL SKIN EXAM: no rashes or lesions noted Course Vital Signs: Vital signs: Vital Signs Temperature 98.1 F 12/04/22 21:49 Pulse Rate 69 12/04/22 23:52 Respiratory Rate 18 12/04/22 21:49 Blood Pressure 93/71 12/04/22 23:52 Pulse Oximetry 96 12/04/22 23:52 Oxygen Delivery Me thod Room Air 12/04/22 23:52 MDM - Dizziness Medical Decision Making Patient presents with vertigo she has a long history of vertigo is likely chronic in nature she is well-appearing here she feels much improved after Antivert she does have restless legs feels improved after Zanaflex CT head is normal no signs of stroke she is stable for discharge. Medical Records I reviewed the patient's medical records. Lab Data I reviewed the patient's lab results. 12/04/22 22:32 12/04/22 22:32 Radiology Impressions Chest X-Ray 12/04/22: IMPRESSION: No acute findings. Head CT 12/04/22: IMPRESSION: No acute intracranial abnormality. Laboratory Results WBC 7.6 10^3/uL (4.0-10.0) 12/04/22 22: RBC 4.38 10^6/uL (4.1-5.3) 12/04/22 22: Hgb 13.5 g/dL (11.5-15.3) 12/04/22 22: Hct 41.4 % (37.0-47.0) 12/04/22 22: MCV 94.5 fl (81-99) 12/04/22 22: MCH 30.8 pg (28.0-34.0) 12/04/22 22: MCHC 32.6 g/dL (30.0-36.0) 12/04/22 22: RDW 11.9 % (12.1-15.1) L 12/04/22: Plt Count 270 10^3/cmm (130-400) 12/04/22 22: MPV 9.9 fL (7.4-10.4) 12/04/22 22: Neut % (Auto) 76.8 % 12/04/22 22: Lymph % (Auto) 17.6 % 12/04/22 22: [place] % (Auto) 4.5 % 12/04/22 22: Eos % (Auto) 0.4 % 12/04/22 22: Baso % (Auto) 0.3 % 12/04/22: Neut # (Auto) 5.86 10^3/uL (1.8-7.7) 12/04/22 22: Lymph # (Auto) 1.3 10^3/uL (0.8-4.8) 12/04/22 22: [place] # (Auto) 0.3 10^3/uL (0.2-0.9) 12/04/22 22:32 Eos # (Auto) 0.0 10^3/uL (0.0-0.8) 12/04/22 22:32 Baso # (Auto) 0.0 10^3/uL (0.0-0.1) 12/04/22 22:32 Nucleated RBC % (auto) 0 % 12/04/22 22: Nucleated RBCs # 0.0 /100WBC 12/04/22 22:32 Sodium 142 mmol/L (136-145) 12/04/22 22:32 Potassium 3.5 mmol/L (3.5-5.1) 12/04/22 22:32 Chloride 106 mmol/L (98-107) 12/04/22 22:32 Carbon Dioxide 26 mmol/L (22-29) 12/04/22 22:32 Anion Gap 13.5 (5-19) 12/04/22 22:32 BUN 14 mg/dL (8-23) 12/04/22 22:32 Creatinine 0.8 mg/dL (0.5-0.9) 12/04/22 22:32 GFR Calculation 72.7 mL/min (90-130) L 12/04/22 22:32 Glucose 113 mg/dL (65-115) 12/04/22 22:32 Calculated Osmolality 295 mOsm/kg (285-295) 12/04/22 22:32 Calcium 9.3 mg/dL (8.5-10.5) 12/04/22 22:32 Total Bilirubin 0.2 mg/dL (0.15-1.2) 12/04/22 22:32 AST 13 U/L (0-32) 12/04/22 22:32 ALT 10 U/L (0-33) 12/04/22 22:32 Alkaline Phosphatase 38 U/L (35-105) 12/04/22 22:32 Troponin T Baseline 6 ng/L (0-10) 12/04/22 22:32 Total Protein 6.9 g/dL (6.6-8.7) 12/04/22 22:32 Albumin 4.4 g/dL (3.5-5.2) 12/04/22 22: Globulin 2.5 g/dL (1.3-4.6) 12/04/22 22:32 Discharge Plan Discharge Patient Disposition: Home Clinical Impression: Vertigo, Restless leg Condition: Stable Prescriptions: New meclizine 25 mg tablet 25 mg PO TID PRN (Reason: dizziness) Qty: 20 0RF No Action hydrocodone-acetaminophen 10-325 mg tablet 1 tab PO .5 TIMES PRN (Reason: pain) 30 Days Qty: 150 0RF Rx Instructions: fill on or after 05/02/21 hydrocodone-acetaminophen 10-325 mg tablet 1 tab PO .5 times a day 30 Days Qty: 150 0RF Rx Instructions: fill on or after 06/01/21 tramadol 50 mg tablet 50 mg PO .2 TABS QID 30 Days Qty: 240 1RF Rx Instructions: fill on or after 04/27/21 and 05/27/21 tizanidine 4 mg tablet 4 mg PO TID PRN (Reason: muscle spasticity) 30 Days Qty: 90 1RF escitalopram oxalate [Lexapro] 20 mg tablet 20 mg PO QPM sucralfate 1 gram tablet 1 g PO QID Qty: 90 0RF Rx Instructions: with meals and bedtime metula & genger TEA as directed clarithromycin 500 mg tablet 500 mg PO BID 14 Days Qty: 28 0RF metronidazole 500 mg tablet 500 mg PO TID 14 Days Qty: 42 0RF pantoprazole 40 mg tablet,delayed release (DR/EC) 40 mg PO BID 14 Days Qty: 28 0RF Rx Instructions: BID for two weeks with antibiotic therapy meloxicam 15 mg tablet 15 mg PO DAILY docusate sodium [Colace] 100 mg Capsule 100 mg PO DAILY estradiol 2 mg tablet 2 mg PO BEDTIME lisinopril-hydrochlorothiazide 20-25 mg tablet 1 tab PO QAM Lexapro 10 mg Tablet Discharge Orders: Discharge ED (Routine); Ordered 12/05/22 Ordered By: Evi Nino Referrals: Dee,Keila, [facility] [Primary Care Provider] - Discharge Diet: Advance as tolerated Discharge Activity: Resume usual activity Patient Instructions: Vertigo (ED) Coding Level of Care Code ED [employer] for Krys Maciel
[2022-12-04] MEDS: meclizine 25 mg tablet 50 MG PO (23:29)
[2022-12-04] MEDS: diazePAM 2 mg Tablet PO (23:30)
[2022-12-04 23:52] VITALS: BP 93/71; PULSE 69; O2SAT 96
[2022-12-05] VITALS: BP 104/66; PULSE 71; O2SAT 96
[2022-12-05] MEDS: ondansetron 2 mg/ML SDV 2 mL 4 MG IVP (00:27)
[2022-12-05] MEDS: morphine 4 mg/mL SDV 1 mL IVP (00:29)
[2022-12-05] MEDS: tizanidine 4 mg Tablet PO (00:57)
[2022-12-05 01:04] VITALS: PULSE 60; RESP 16; O2SAT 96
[2022-12-05 01:22] LABS: Troponin 5 2HR Delta 0 ABS# (0-10)
== END 2022-12-05 01:01 | disposition home or self-care (01) ==
PROVIDERS: Nurse Practitioner; Emergency Provider Emergency Medicine; PCP Nurse Practitioner Family
DX: R42 Dizziness and giddiness (principal)
CPT/HCPCS: 36415; 70450; 71045; 80053; 84484; 85025; 96361; 96374; 96375; 96376; 99285; J2270; J2405; J7030; J8597

== ENCOUNTER 2024-07-11 06:30 | Outpatient (RCR) | payer BC, SELFPAY | END 2024-08-10 23:59 | disposition home or self-care (01) | LOC: APT 06:30 | PROVIDERS: Visit Provider Orthopaedic Surgery Foot and Ankle Surgery | DX: Z47.89 Encounter for other orthopedic aftercare (principal) | CPT/HCPCS: 97162 ==

== ENCOUNTER 2024-08-11 06:30 | Outpatient (RCR) | payer BC, SELFPAY | END 2024-09-07 23:59 | disposition home or self-care (01) | LOC: APT 06:30 | PROVIDERS: Visit Provider Orthopaedic Surgery Foot and Ankle Surgery | DX: Z47.89 Encounter for other orthopedic aftercare (principal) | CPT/HCPCS: 97110; 97112; 97530 ==

== ENCOUNTER 2024-09-08 06:00 | Outpatient (RCR) | payer BC, SELFPAY | END 2024-10-08 23:59 | disposition home or self-care (01) | LOC: APT 06:00 | PROVIDERS: Visit Provider Orthopaedic Surgery Foot and Ankle Surgery | DX: Z47.1 Aftercare following joint replacement surgery (principal) | CPT/HCPCS: 97110 ==

== ENCOUNTER → 2024-11-25 15:15 | Outpatient (BNVA) | payer BC, SELFPAY | PROVIDERS: Visit Provider Emergency Medicine | DX: M25.572 Pain in left ankle and joints of left foot (principal) | CPT/HCPCS: 73610 ==

== ENCOUNTER 2025-02-04 07:06 | Outpatient (CLI) | payer MEDICARE, BC, SELFPAY ==
--- NOTE | 2025-02-04 07:19 | MR_ITS ---
WS: [id number] MRI LUMBAR SPINE NONCONTRAST HISTORY: LUMBAR RADICULOPATHY, RIGHT COMPARISON: None available. TECHNIQUE: Sagittal and axial multisequence imaging is submitted. Cervical and thoracic spondylosis and curvature. Mild increase in lumbar lordosis and curvature. Progression of degenerative disc disease at L2-3 since the prior study. Loss of the normal morphology of the L2 and L3 endplates. Small amount of reactive marrow edema. No acute fractures. Moderate disc base narrowing at L2-3. Conus terminates normally at L1-2 disc level. L1-L2: Normal. L2-L3: Mild annular disc bulging and osteophytic ridging. Mild ligamentum flavum and facet arthritis. Very mild encroachment upon the subarticular recesses. L3-L4: Mild annular disc bulging with moderate ligamentum flavum and facet arthritis. Mild disc encroachment upon the subarticular recesses, RIGHT greater than LEFT. L4-L5: Mild annular disc bulging with disc contacting the traversing L5 nerve roots, LEFT greater than RIGHT. Moderate ligamentum flavum and facet arthritis. Mild subarticular recess stenosis. L5-S1: Mild disc bulging with facet and ligamentum flavum disease. Fluid in the RIGHT facet joint. 8 mm RIGHT facet joint cyst at L5-S1. Paravertebral soft tissues are normal. MR/MR lumbar spine wo con* [id number] IMPRESSION: 1. Progression of degenerative disc disease at L2-3 and LEFT lumbar spine scol iosis since 10/21/2011. 2. Disc bulging with mild encroachment upon the subarticular recesses of L2-3. 3. Mild disc encroachment upon the subarticular recesses, RIGHT greater than L EFT at L3-4. 4. Mild disc contacting the traversing L5 nerve roots at L4-5, LEFT greater th an RIGHT. 5. No high-grade central or foraminal stenosis. 6. L5-S1 facet joint cyst, 8 mm. Fluid in the RIGHT facet joint.
== END 2025-02-04 07:07 | disposition home or self-care (01) ==
LOC: RAD 07:08
PROVIDERS: PCP Nurse Practitioner Family; Visit Provider Nurse Practitioner Family
DX: M51.16 Intervertebral disc disorders with radiculopathy, lumbar region (principal); M53.87 Other specified dorsopathies, lumbosacral region
CPT/HCPCS: 72148

== ENCOUNTER 2025-02-08 05:00 | Outpatient (RCR) | payer MEDICARE, SELFPAY | END 2025-03-10 23:59 | disposition home or self-care (01) | LOC: APT 05:00 | PROVIDERS: PCP Nurse Practitioner Family; Visit Provider Nurse Practitioner Family | DX: M54.16 Radiculopathy, lumbar region (principal) | CPT/HCPCS: 97110; 97161; 97530 ==

== ENCOUNTER 2025-02-26 15:23 | Outpatient (CLI) | payer MEDICARE, SELFPAY ==
--- NOTE | 2025-02-26 15:28 | XR_ITS ---
WS: [id number] SCREENING DEXA SCAN [employer] [facility] CLINICAL INFORMATION: UNSPECIFIED MENOPAUSAL PERIMENOPAUSAL DISORDER COMPARISON: None. FINDINGS: The L1-L4 bone mineral density measures 1.352 g/cm2. This corresponds to a T score score of 1.4 and Z score of 2.7. Left femoral neck bone mineral density measures 0.895 (g/cm2). This corresponds to a T score of -0.9 (no units) and Z score of 0.1 (no units). XR/XR DEXA axial skeleton* [id number] IMPRESSION: Normal bone mineralization. Patient's FRAX calculated 10 year probability for major osteoporotic fracture i s 9.1% and osteoporotic hip fracture is 1.0%.
== END 2025-02-26 15:24 | disposition home or self-care (01) ==
LOC: RAD 15:24
PROVIDERS: PCP Nurse Practitioner Family; Visit Provider Nurse Practitioner Family
DX: Z13.820 Encounter for screening for osteoporosis (principal); Z78.0 Asymptomatic menopausal state; N95.9 Unspecified menopausal and perimenopausal disorder
CPT/HCPCS: 77080

== ENCOUNTER 2025-03-11 05:00 | Outpatient (RCR) | payer MEDICARE, SELFPAY | END 2025-04-09 23:59 | disposition home or self-care (01) | LOC: APT 05:00 | PROVIDERS: PCP Nurse Practitioner Family; Visit Provider Nurse Practitioner Family | DX: M54.16 Radiculopathy, lumbar region (principal) | CPT/HCPCS: 97110; 97530 ==

== ENCOUNTER → 2025-03-12 15:48 | Outpatient (BNVA) | payer MEDICARE, SELFPAY | PROVIDERS: PCP Nurse Practitioner Family; Visit Provider Orthopaedic Surgery | DX: M48.061 Spinal stenosis, lumbar region without neurogenic claudication (principal); M54.2 Cervicalgia; G89.29 Other chronic pain | CPT/HCPCS: 72110; 99203 ==

== ENCOUNTER → 2025-03-18 08:16 | Outpatient (BNVA) | payer MEDICARE, SELFPAY | PROVIDERS: PCP Nurse Practitioner Family; Referring Provider Orthopaedic Surgery; Visit Provider Nurse Practitioner Family | DX: M54.2 Cervicalgia (principal); M54.9 Dorsalgia, unspecified; G89.29 Other chronic pain; M47.816 Spondylosis without myelopathy or radiculopathy, lumbar region; M51.360 Other intervertebral disc degeneration, lumbar region with discogenic back pain only; M25.561 Pain in right knee | CPT/HCPCS: 99203; 99214 ==

== ENCOUNTER → 2025-03-28 09:45 | Outpatient (BNVA) | payer MEDICARE, SELFPAY | PROVIDERS: PCP Nurse Practitioner Family; Visit Provider Nurse Practitioner Family | DX: M79.10 Myalgia, unspecified site (principal); M51.360 Other intervertebral disc degeneration, lumbar region with discogenic back pain only; M54.2 Cervicalgia; M54.9 Dorsalgia, unspecified; G89.29 Other chronic pain; M47.816 Spondylosis without myelopathy or radiculopathy, lumbar region | CPT/HCPCS: 20553; 99214; J1010; J3490 ==

== ENCOUNTER → 2025-04-02 08:49 | Outpatient (BNVA) | payer MEDICARE, SELFPAY | PROVIDERS: PCP Clinical Nurse Specialist Adult Health; Visit Provider Clinical Nurse Specialist Adult Health | DX: I10 Essential (primary) hypertension (principal) | CPT/HCPCS: 80053; 80061; 84443; 85025 ==

== ENCOUNTER → 2025-04-03 08:49 | Outpatient (BNVA) | payer MEDICARE, SELFPAY | PROVIDERS: PCP Clinical Nurse Specialist Adult Health; Visit Provider Clinical Nurse Specialist Adult Health | DX: D64.9 Anemia, unspecified (principal) | CPT/HCPCS: 82607; 82728; 82746; 83540; 84466 ==

== ENCOUNTER 2025-04-24 12:35 | Outpatient (RCR) | payer MEDICARE, SELFPAY | END 2025-05-10 23:59 | disposition home or self-care (01) | LOC: APT 12:35 | PROVIDERS: PCP Clinical Nurse Specialist Adult Health; Visit Provider Nurse Practitioner Family | DX: M54.16 Radiculopathy, lumbar region (principal) | CPT/HCPCS: 97110; 97530 ==

== ENCOUNTER → 2025-05-09 08:13 | Outpatient (BNVA) | payer MEDICARE, SELFPAY | PROVIDERS: PCP Clinical Nurse Specialist Adult Health; Visit Provider Nurse Practitioner Family | DX: M51.360 Other intervertebral disc degeneration, lumbar region with discogenic back pain only (principal); M47.816 Spondylosis without myelopathy or radiculopathy, lumbar region; M54.2 Cervicalgia; G89.29 Other chronic pain | CPT/HCPCS: 99214 ==

== ENCOUNTER 2025-05-14 15:33 | Outpatient (CLI) | payer MEDICARE, SELFPAY | END 2025-05-14 15:34 | disposition home or self-care (01) | LOC: SLEEP 15:35 | PROVIDERS: PCP Clinical Nurse Specialist Adult Health; Referring Provider Clinical Nurse Specialist Adult Health; Visit Provider Internal Medicine Pulmonary Disease | DX: G47.33 Obstructive sleep apnea (adult) (pediatric) (principal); G47.36 Sleep related hypoventilation in conditions classified elsewhere; M51.360 Other intervertebral disc degeneration, lumbar region with discogenic back pain only | CPT/HCPCS: 99213; G0399 ==